=== PATIENT | female | born 2000 ===

== ENCOUNTER 2020-01-07 04:32 | Inpatient (IN) ==
[2020-01-07] MEDS ORDERED: MEPERIDINE 50 MG/1 ML VIAL IV PRN (04:55)
[2020-01-07] MEDS ORDERED: BUTORPHANOL 2 MG/ML VIAL IV PRN (04:55)
[2020-01-07] MEDS ORDERED: ONDANSETRON 4 MG/2 ML VIAL IV PRN ×2 (04:55→23:34)
[2020-01-07] MEDS: LACTATED RINGERS 1,000 ML IV SCH ×2 (05:17→13:38)
[2020-01-07] MEDS ORDERED: AMPICILLIN INJ 2,000 MG in SODIUM CHLORIDE 0.9% 100 ML IV ONE (05:30)
[2020-01-07 05:55] LABS: Basophils % 0.4 % (0.0-0.8); Eosinophils # 0.1 10*3/uL (0.0-0.87); Hematocrit 30.4 VOL% (35.7-47.0); Hemoglobin 10.2 GM/DL (12.0-16.0); Immature Granulocytes % 0.5 %; Immature Granulocytes Absolute 0.04 #; Mean Corpuscular HGB Conc 33.6 GM/DL (32-36); Mean Corpuscular Volume 81.3 FL (87-102); Monocytes % 6.9 % (1.7-12.7); Neutrophils % 67.2 % (38.7-73.9); Platelet Count 225 T/CUMM (130-400); Red Blood Count 3.74 MC/CUMM (3.8-5.5); Red Cell Distribution Width 13.4 % (9.3-17.3); White Blood Count 8.4 T/CUMM (4-12)
[2020-01-07 06:18] LABS: Alanine Aminotransferase 10 U/L (13-56); Albumin 2.3 G/DL (3.4-5.0); Alkaline Phosphatase 181 U/L (45-117); Aspartate Amino Transferase 14 U/L (0-37); Bilirubin,Total < 0.39 MG/DL (0.2-1.0); Blood Urea Nitrogen 15 MG/DL (7-18); Calcium 7.8 MG/DL (8.5-10.1); Estimated Glom Filtration Rate 104 ML/MIN; Glucose 85 MG/DL (74-106); Osmolality,Calculated 272.8 MOS/KG (273-304); Total Protein 6.2 G/DL (6.4-8.3)
[2020-01-07] MEDS ORDERED: OXYTOCIN/LR 20 UNIT/1,000 ML BAG IV ONE ×3 (09:14→23:34)
[2020-01-07] MEDS: AMPICILLIN INJ 1,000 MG in SODIUM CHLORIDE 0.9% 100 ML IV SCH ×3 (09:18→17:28)
[2020-01-07] MEDS ORDERED: miSOPROStoL 200 MCG TABLET PO ONE (10:03)
[2020-01-07] MEDS ORDERED: OXYTOCIN/LR 20 UNIT/1,000 ML BAG IV SCH (14:00)
[2020-01-07] MEDS ORDERED: hydrOXYzine HCL 25 MG/1 ML VIAL IM PRN (14:06)
[2020-01-07] MEDS ORDERED: CITRIC ACID/SODIUM CITRATE 30 ML UDCUP ONE (14:06)
[2020-01-07] MEDS ORDERED: FAMOTIDINE 20 MG/2 ML VIAL IV ONE ×2 (14:06→14:07)
[2020-01-07] MEDS ORDERED: ePHEDrine 50 MG/ML VIAL IV PRN (14:06)
[2020-01-07] MEDS ORDERED: ONDANSETRON 4 MG/2 ML VIAL IV ONE (14:06)
[2020-01-07] MEDS ORDERED: ePHEDrine 50 MG/ML VIAL ONE (14:06)
[2020-01-07] MEDS ORDERED: NALOXONE 0.4 MG/ML VIAL IV PRN (14:06)
[2020-01-07] MEDS ORDERED: PROMETHAZINE 25 MG/1 ML VIAL IM ONE (14:06)
[2020-01-07] MEDS ORDERED: LACTATED RINGERS 1,000 ML IV ONE (14:06)
[2020-01-07] MEDS ORDERED: CITRIC ACID/SODIUM CITRATE 30 ML UDCUP PO ONE (14:06)
[2020-01-07] MEDS ORDERED: diphenhydrAMINE 50 MG/1 ML VIAL IV PRN ×2 (14:06)
[2020-01-07] MEDS ORDERED: fentaNYL 2 MCG/ROPIV 0.2% EPID 100 ML EPIDURAL ONE (14:07)
[2020-01-07] MEDS: fentaNYL 2 MCG/ROPIV 0.2% EPID 100 ML EPIDURAL SCH ×2 (14:54→22:48)
[2020-01-07 16:04] LABS: Bilirubin,Urine Negative (Negative); Blood, Urine Negative (Negative); Glucose,Urine (UA) Negative (Negative); Ketones,Urine Negative (Negative); Mucus,Urine Occasional /LPF (Occasional); Nitrite,Urine Negative (Negative); Protein,Urine Negative; RBC,Urine 3 /HPF (0-4); Urine Appearance CLEAR (Clear); Urine Color Straw (Yellow); Urine Specific Gravity 1.009 (1.001-1.035); Urine Urobilinogen < 2.0 EU/DL (0.2-1.0); WBC,Urine <1 /HPF (0-6)
[2020-01-07] MEDS ORDERED: miSOPROStoL 200 MCG TABLET ONE ×2 (19:45→19:47)
[2020-01-07] MEDS ORDERED: CARBOPROST TROMETHAMINE 250 MCG/ML AMP IM ONE (19:46)
[2020-01-07] MEDS ORDERED: TRANEXAMIC ACID 1,000 MG/10 ML VIAL ONE ×2 (19:46→19:47)
[2020-01-07] MEDS ORDERED: METHYLERGONOVINE 0.2 MG/1 ML AMP ONE (19:46)
[2020-01-07] MEDS ORDERED: SODIUM CHLORIDE 0.9% 0 ML IV ONE (19:47)
[2020-01-07] MEDS ORDERED: OXYTOCIN/LR 30 UNIT/1,000 ML BAG IV ONE (19:49)
[2020-01-07] MEDS ORDERED: AMPICILLIN INJ 1,000 MG in SODIUM CHLORIDE 0.9% 100 ML IV ONE (21:30)
[2020-01-07 23:31] LABS: Cord Arterial Blood HCO3 19.7 MMOL/L
[2020-01-07 23:33] LABS: Cord Venous Blood HCO3 20.4 MMOL/L; Cord Venous Blood PCO2 39.5 MMHG; Cord Venous Blood PO2 30.7
[2020-01-07] MEDS ORDERED: ACETAMINOPHEN 325 MG TABLET PO PRN (23:34)
[2020-01-07] MEDS ORDERED: MEASLES/MUMPS/RUBELLA VACCINE 0.5 ML VIAL SUBCUT ONE (23:34)
[2020-01-07] MEDS ORDERED: oxyCODONE/ACETAMINOPHEN 5-325 MG TABLET PO PRN ×2 (23:34)
[2020-01-07] MEDS ORDERED: BENZOCAINE 20%/MENTHOL 0.5% SPRAY 56 GM CAN TOP PRN (23:34)
[2020-01-07] MEDS ORDERED: BISACODYL 10 MG SUPP RECTAL PRN (23:34)
[2020-01-07] MEDS ORDERED: HYDROCORTISONE 2.5% RECTAL CREAM 30 GM TUBE TOP PRN (23:34)
[2020-01-07] MEDS ORDERED: LANOLIN 50% CREAM 0.3 OZ TUBE TOP PRN (23:34)
[2020-01-07] MEDS ORDERED: WITCH HAZEL PADS 100/JAR TOP PRN (23:34)
[2020-01-07] MEDS ORDERED: DIPH/TET/ACEL PERT BOOSTER VACCINE 0.5 ML VIAL IM ONE (23:34)
[2020-01-07] MEDS ORDERED: IBUPROFEN 800 MG TABLET PO PRN (23:34)
[2020-01-07] MEDS ORDERED: RHO(D) IMMUNE GLOBULIN 300 MCG SYRINGE IM ONE (23:34)
[2020-01-08] MEDS ORDERED: CARBOPROST TROMETHAMINE 250 MCG/ML AMP IM ONE
[2020-01-08] MEDS ORDERED: BENZOCAINE/MENTHOL LOZENGE 18/BOX PO PRN (01:40)
[2020-01-08 03:53] LABS: Cannabinoid Screen,Urine Negative (Negative)
[2020-01-08 05:49] LABS: Basophils % 0.2 % (0.0-0.8); Hematocrit 30.8 VOL% (35.7-47.0); Hemoglobin 10.3 GM/DL (12.0-16.0); Immature Granulocytes % 0.7 %; Immature Granulocytes Absolute 0.13 #; Lymphocytes # 1.6 10*3/uL (1.4-4.0); Lymphocytes % 9.1 % (21.3-54.2); Mean Corpuscular HGB Conc 33.4 GM/DL (32-36); Mean Corpuscular Volume 81.5 FL (87-102); Mean Platelet Volume 10.9 FL (9.6-12.0); Monocytes % 6.9 % (1.7-12.7); Neutrophils % 83.1 % (38.7-73.9); Platelet Count 213 T/CUMM (130-400); Red Blood Count 3.78 MC/CUMM (3.8-5.5); Red Cell Distribution Width 13.4 % (9.3-17.3); White Blood Count 17.5 T/CUMM (4-12)
[2020-01-08 06:36] LABS: Hypochromasia 1+; Lymphocytes 10 % (20-55); Segmented Neutrophils 80 % (50-85); Total Cells Counted 100
[2020-01-08 06:37] LABS: Microcytosis 1+; Ovalocytes Slight
[2020-01-08 06:38] LABS: Platelet Estimate Normal
[2020-01-08] MEDS: DOCUSATE SODIUM 100 MG CAPSULE PO SCH ×2 (08:42→21:23)
[2020-01-08] MEDS ORDERED: MAGNESIUM HYDROXIDE SUSP 30 ML UDCUP PO PRN (17:03)
[2020-01-09 07:23] VITALS: BP 107/63
[2020-01-09] MEDS: DOCUSATE SODIUM 100 MG CAPSULE PO SCH (08:45)
[2020-01-09] MEDS ORDERED: AZITHROMYCIN 250 MG TABLET PO ONE (09:37)
== END 2020-01-09 13:40 | disposition home health service (06) | DRG 807 ==
LOC: N.LDOUT 04:32 → N.LD 04:35 → N.OB 01-08 01:19
PROVIDERS: ADMIT Obstetrics & Gynecology; ATTEND Obstetrics & Gynecology